=== PATIENT | female | born 1940 | race Caucasian/White ===

== ENCOUNTER 2019-03-27 06:36 | Inpatient (IN) ==
[2019-03-21 13:51] LABS: Basophils # 0.1 10*3/uL (0.0-0.2); Basophils % 0.6 % (0.0-0.8); Eosinophils # 0.1 10*3/uL (0.0-0.87); Eosinophils % 1.8 % (0.00-10.9); Hematocrit 38.7 VOL% (35.7-47.0); Hemoglobin 12.6 GM/DL (12.0-16.0); Immature Granulocytes % 0.3 %; Immature Granulocytes Absolute 0.02 #; Lymphocytes # 3.2 10*3/uL (1.4-4.0); Lymphocytes % 41.2 % (21.3-54.2); Mean Corpuscular HGB Conc 32.6 GM/DL (32-36); Mean Corpuscular Volume 99.5 FL (87-102); Mean Platelet Volume 9.5 FL (9.6-12.0); Monocytes % 8.6 % (1.7-12.7); Neutrophils % 47.5 % (38.7-73.9); Platelet Count 195 T/CUMM (130-400); Red Blood Count 3.89 MC/CUMM (3.8-5.5); Red Cell Distribution Width 11.9 % (9.3-17.3); White Blood Count 7.8 T/CUMM (4-12)
[2019-03-21 14:15] LABS: Alanine Aminotransferase 45 U/L (13-56); Albumin 4.3 G/DL (3.4-5.0); Alkaline Phosphatase 90 U/L (45-117); Aspartate Amino Transferase 43 U/L (0-37); Bilirubin,Total < 0.39 MG/DL (0.2-1.0); Blood Urea Nitrogen 16 MG/DL (7-18); Calcium 9.5 MG/DL (8.5-10.1); Glucose 98 MG/DL (74-106); Osmolality,Calculated 277.5 MOS/KG (273-304); Total Protein 8.1 G/DL (6.4-8.3)
[~2019-03-27 06:36] MED LIST: ceFAZolin 1,000 MG in SYRINGE 1 EACH IV ONE
[2019-03-27] MEDS ORDERED: DIAZEPAM 5 MG TABLET PO ONE (07:01)
[2019-03-27] MEDS ORDERED: DIAZEPAM 5 MG TABLET ONE (07:25)
[2019-03-27] MEDS ORDERED: ceFAZolin 1,000 MG VIAL ONE ×2 (07:25→09:39)
[2019-03-27] MEDS: LACTATED RINGERS 1,000 ML IV SCH ×3 (08:00→23:22)
[2019-03-27] MEDS ORDERED: TISSUE ADHESIVE 1 EACH APPLICATOR TOP ONE (08:33)
[2019-03-27] MEDS ORDERED: HEPARIN 5,000 UNIT/1 ML VIAL ONE (08:33)
[2019-03-27] MEDS ORDERED: LIDOCAINE 1% 20 ML VIAL ONE (08:34)
[2019-03-27] MEDS ORDERED: PROMETHAZINE 25 MG/1 ML VIAL IM PRN (10:53)
[2019-03-27] MEDS ORDERED: ONDANSETRON 4 MG/2 ML VIAL IV PRN (10:53)
[2019-03-27] MEDS ORDERED: NALOXONE 0.4 MG/ML VIAL IV PRN (10:53)
[2019-03-27] MEDS ORDERED: MAGNESIUM HYDROXIDE SUSP 30 ML UDCUP PO PRN (10:56)
[2019-03-27] MEDS ORDERED: ACETAMINOPHEN 500 MG TABLET PO PRN (10:56)
[2019-03-27] MEDS ORDERED: PHENYLEPHRINE DRIP 40 MG/250 ML PREMIX IV SCH (11:00)
[2019-03-27] MEDS ORDERED: NITROPRUSSIDE 50 MG/2 ML VIAL ONE ×2 (11:24→21:46)
[2019-03-27] MEDS: NITROPRUSSIDE 100 MG in DEXTROSE 5% 250 ML IV SCH ×2 (11:27→22:18)
[2019-03-27] MEDS ORDERED: PROPOFOL 200 MG/20 ML VIAL IV ONE (11:36)
[2019-03-27] MEDS ORDERED: PHENYLEPHRINE DRIP 20 MG/250 ML PREMIX IV ONE (11:37)
[2019-03-27] MEDS ORDERED: ETOMIDATE 40 MG/20 ML VIAL IV ONE (11:37)
[2019-03-27] MEDS ORDERED: GLYCOPYRROLATE 0.4 MG/2 ML VIAL ONE (11:37)
[2019-03-27] MEDS ORDERED: SEVOFLURANE 1 UNIT/15 MINUTE INH ONE (11:37)
[2019-03-27] MEDS ORDERED: ONDANSETRON 4 MG/2 ML VIAL ONE (11:37)
[2019-03-27] MEDS ORDERED: fentaNYL 100 MCG/2 ML VIAL ONE (11:37)
[2019-03-27] MEDS ORDERED: HEPARIN 10,000 UNIT/10 ML VIAL ONE (11:37)
[2019-03-27] MEDS ORDERED: SODIUM CHLORIDE 0.9% 1,000 ML IV ONE (11:38)
[2019-03-27] MEDS ORDERED: NEOSTIGMINE 10 MG/10 ML VIAL ONE (11:38)
[2019-03-27] MEDS ORDERED: ROCURONIUM 100 MG/10 ML VIAL IV ONE (11:38)
[2019-03-27] MEDS ORDERED: PROTAMINE SULFATE 50 MG/5 ML VIAL IV ONE (11:38)
[2019-03-27] MEDS ORDERED: NITROGLYCERIN DRIP 50 MG/250 ML BOTTLE IV ONE (11:38)
[2019-03-27] MEDS ORDERED: MORPHINE 10 MG/1 ML VIAL ONE (12:15)
[2019-03-27] MEDS: MORPHINE 10 MG/1 ML VIAL IV PRN ×2 (12:17→16:30)
[2019-03-27 13:07] VITALS: BP 179/55
[2019-03-27] MEDS: DULoxetine 30 MG CAPSULE PO SCH (16:50)
[2019-03-27] MEDS ORDERED: MIRTAZAPINE 30 MG TABLET PO SCH (21:00)
[2019-03-27] MEDS: CARVEDILOL 25 MG TABLET PO SCH (21:06)
[2019-03-28] MEDS ORDERED: FUROSEMIDE 40 MG TABLET PO SCH (09:00)
[2019-03-28] MEDS ORDERED: ROSUVASTATIN 20 MG TABLET PO SCH (09:00)
[2019-03-28] MEDS ORDERED: CLOPIDOGREL 75 MG TABLET PO SCH (09:00)
[2019-03-28] MEDS ORDERED: OLMESARTAN 20 MG TABLET PO SCH (09:00)
[2019-03-28] MEDS ORDERED: PANTOPRAZOLE 40 MG TABLET PO SCH (09:00)
[2019-03-28] MEDS ORDERED: EZETIMIBE 10 MG TABLET PO SCH (09:00)
[2019-03-28] MEDS ORDERED: ASPIRIN EC 81 MG TABLET PO SCH ×2 (09:00→11:00)
[2019-03-28] MEDS: LACTATED RINGERS 1,000 ML IV SCH ×2 (09:13→09:14)
[2019-03-28] MEDS: CARVEDILOL 25 MG TABLET PO SCH (09:37)
[2019-03-28] MEDS: DULoxetine 30 MG CAPSULE PO SCH (17:35)
[2019-04-03] MEDS ORDERED: NON-FORMULARY MEDICATION (Alendronate [Fosamax] 70 MG) PO SCH (09:00)
== END 2019-03-28 17:11 | disposition home or self-care (01) | DRG 39 ==
LOC: N.SDSINP 06:36 → N.ICU 12:40
PROVIDERS: ADMIT Surgery; ATTEND Surgery